=== PATIENT | male | born 1945 | race Caucasian/White ===

== ENCOUNTER → 2020-05-03 11:41 | Outpatient (CLI) | payer MEDICARE, OTHER, SELFPAY ==
[2020-05-03 13:47] LABS: Add Manual Diff / Slide Review SLIDE REVIEW; Basophils Absolute Auto 0 /uL (0-100); Basophils Percent Auto 0.8 % (0-2); Eosinophils Absolute Auto 0 /uL (0-450); Eosinophils Percent Auto 1.3 % (2-4); Hematocrit 39.4 % (41-53); Hemoglobin 13.5 g/dL (13.5-17.5); Lymphocytes Absolute Auto 800 /uL (1100-4500); Lymphocytes Percent Auto 37.1 % (25-40); Mean Corpuscular HGB Conc 34.4 % (30-36); Mean Corpuscular Hemoglobin 29.1 PG (26-34); Mean Corpuscular Volume 84.6 fL (80-100); Monocytes Absolute Auto 400 /uL (0-900); Monocytes Percent Auto 20.4 % (3-14); Neutrophils Absolute Auto 900 /uL (1500-7000); Neutrophils Percent Auto 40.4 % (50-75); Platelet Count 121 X10^3/uL (150-400); Red Blood Cell Count 4.66 X10^6/uL (4.5-5.9); Red Cell Distribution Width 17.6 % (11.6-14.8); White Blood Cell Count 2.1 X10^3/uL (4.5-11.0)
[2020-05-03 14:22] LABS: Alanine Aminotransferase 15 IU/L (<50); Albumin 4.4 g/dL (3.5-5.0); Albumin Globulin Ratio 1.8 (1.0-2.8); Alkaline Phosphatase 64 U/L (38-126); Aspartate Aminotransferase 39 IU/L (17-59); BUN Creatinine Ratio 23.5 (6-22); Bilirubin Total 0.9 mg/dL (0.2-1.3); Bilirubin Unconjugated 0.9 mg/dL (0.0-1.1); Blood Urea Nitrogen 20 mg/dL (9-20); Calcium 9.6 mg/dL (8.4-10.2); Carbon Dioxide 31 mmol/L (22-32); Chloride 101 mmol/L (98-107); Estimated Glomerular Filt Rate > 60.0 mL/min (>60); Globulin 2.4 g/dL (1.7-4.1); Glucose 85 mg/dL (80-110); HEMOLYSIS < 15 (0-50); Lactate Dehydrogenase 496 U/L (313-618); Magnesium 2.2 mg/dL (1.6-2.3); Phosphorous 3.1 mg/dL (2.3-3.7); Potassium 4.6 mmol/L (3.4-5.1); Sodium 137 mmol/L (137-145); Total Protein 6.8 g/dL (6.3-8.2)
[2020-05-03 15:29] LABS: Anisocytosis 1+; Platelet Estimate Decreased on smear; Poikilocytosis 1+
== END ==
PROVIDERS: Referring Provider Internal Medicine Hematology & Oncology; Visit Provider Internal Medicine Hematology & Oncology
DX: D46.9 Myelodysplastic syndrome, unspecified (principal); I10 Essential (primary) hypertension
CPT/HCPCS: 36415; 80069; 80076; 83615; 83735; 85025

== ENCOUNTER → 2020-09-20 19:08 | Outpatient (ROUT) | payer MEDICARE, OTHER, SELFPAY ==
[2020-09-20 19:46] LABS: Aspartate Aminotransferase 40 IU/L (17-59); BUN Creatinine Ratio 26.4 (6-22); Blood Urea Nitrogen 23 mg/dL (9-20); Calcium 9.6 mg/dL (8.4-10.2); Carbon Dioxide 33 mmol/L (22-32); Chloride 103 mmol/L (98-107); Cholesterol 131 mg/dL (140-199); Estimated Glomerular Filt Rate > 60.0 mL/min (>60); Glucose 101 mg/dL (80-110); HDL Cholesterol 46 mg/dL (40-60); HEMOLYSIS 21 (0-50); LDL Cholesterol Calculated 58 mg/dL (<100); Sodium 139 mmol/L (137-145); Triglycerides 135 mg/dL (35-150)
[2020-09-20 20:12] LABS: Add Manual Diff / Slide Review SLIDE REVIEW; Basophils Absolute Auto 0 /uL (0-100); Basophils Percent Auto 0.7 % (0-2); Eosinophils Absolute Auto 0 /uL (0-450); Eosinophils Percent Auto 1.6 % (2-4); Hematocrit 40.6 % (41-53); Hemoglobin 13.8 g/dL (13.5-17.5); Lymphocytes Absolute Auto 1000 /uL (1100-4500); Lymphocytes Percent Auto 33.2 % (25-40); Mean Corpuscular HGB Conc 34.1 % (30-36); Mean Corpuscular Hemoglobin 28.7 PG (26-34); Mean Corpuscular Volume 84.1 fL (80-100); Monocytes Absolute Auto 400 /uL (0-900); Monocytes Percent Auto 13.3 % (3-14); Neutrophils Absolute Auto 1600 /uL (1500-7000); Neutrophils Percent Auto 51.2 % (50-75); Platelet Count 131 X10^3/uL (150-400); Red Blood Cell Count 4.83 X10^6/uL (4.5-5.9); Red Cell Distribution Width 17.2 % (11.6-14.8); White Blood Cell Count 3.1 X10^3/uL (4.5-11.0)
[2020-09-20 20:13] LABS: Hypochromasia 1+; Microcytosis 1+
== END ==
PROVIDERS: Visit Provider Internal Medicine
DX: I10 Essential (primary) hypertension (principal); E78.2 Mixed hyperlipidemia; D61.818 Other pancytopenia
CPT/HCPCS: 80048; 80061; 84450; 85025

== ENCOUNTER → 2021-04-25 10:47 | Outpatient (CLI) | payer MEDICARE, OTHER, SELFPAY ==
--- NOTE | 2021-04-25 | DI.RAD.S_ITS ---
PROCEDURE: XR LUMBAR SPINE 2-3V INDICATIONS: LEFT-SIDED SCIATICA TECHNIQUE: 3 views of the lumbar spine were acquired. COMPARISON: [facility], , RENAL OR RETROPERITONEAL LIMIT, 08/05/2015, 10:25. FINDINGS: Bones: There are multilevel degenerative changes with multilevel osteophytes anteriorly. There is disc space narrowing and endplate degenerative changes at all lumbar disc levels except L5-S1. There is severe facet arthrosis in the lower lumbar spine. There is rightward curvature of the lumbar spine. The sacroiliac joints are normal. No compression fracture. Soft tissues: Overlying bowel gas pattern is normal. No suspicious soft tissue calcifications. The aorta has atherosclerotic calcifications with aneurysmal dilatation up to 4 centimeters. IMPRESSION: 1. Multilevel degenerative changes of the lumbar spine. 2. 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 3. Rightward curvature of the lumbar spine. 4. 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 5. Atherosclerotic calcifications of the abdominal aorta with aneurysmal dilatation measuring up to 0.4 centimeters. Recommend follow-up ultrasound to compare with prior abdominal ultrasounds. Dictated by: Manuel Skinner M.D. on 04/25/2021 at 13:46 Approved by: Manuel Skinner M.D. on 04/25/2021 at 13:51
[2021-04-25 11:55] LABS: Add Manual Diff / Slide Review NO; Basophils Absolute Auto 0 /uL (0-100); Basophils Percent Auto 0.8 % (0-2); Eosinophils Absolute Auto 100 /uL (0-450); Eosinophils Percent Auto 1.9 % (2-4); Hematocrit 39.3 % (41-53); Hemoglobin 13.3 g/dL (13.5-17.5); Lymphocytes Absolute Auto 1200 /uL (1100-4500); Lymphocytes Percent Auto 36.1 % (25-40); Mean Corpuscular HGB Conc 33.8 % (30-36); Mean Corpuscular Hemoglobin 28.7 PG (26-34); Mean Corpuscular Volume 84.9 fL (80-100); Monocytes Absolute Auto 700 /uL (0-900); Monocytes Percent Auto 21.5 % (3-14); Neutrophils Absolute Auto 1300 /uL (1500-7000); Neutrophils Percent Auto 39.7 % (50-75); Platelet Count 126 X10^3/uL (150-400); Red Blood Cell Count 4.63 X10^6/uL (4.5-5.9); Red Cell Distribution Width 18.2 % (11.6-14.8); White Blood Cell Count 3.3 X10^3/uL (4.5-11.0)
== END ==
PROVIDERS: Physician Assistant; PCP Internal Medicine; Referring Provider Internal Medicine; Visit Provider Internal Medicine
DX: M51.16 Intervertebral disc disorders with radiculopathy, lumbar region (principal); M47.26 Other spondylosis with radiculopathy, lumbar region; I70.0 Atherosclerosis of aorta; I71.4 Abdominal aortic aneurysm, without rupture; I10 Essential (primary) hypertension
CPT/HCPCS: 36415; 72100; 85025

== ENCOUNTER → 2023-06-12 19:02 | Outpatient (CLI) | payer MEDICARE, OTHER, SELFPAY ==
[2023-06-12 19:21] LABS: BUN Creatinine Ratio 20.4 (6-22); Blood Urea Nitrogen 20 mg/dL (9-20); Calcium 9.3 mg/dL (8.4-10.2); Carbon Dioxide 29 mmol/L (22-32); Chloride 101 mmol/L (98-107); Estimated Glomerular Filt Rate > 60 mL/min (>60); Glucose 93 mg/dL (80-110); HEMOLYSIS 19 (0-50); Potassium 4.1 mmol/L (3.4-5.1); Sodium 136 mmol/L (137-145)
== END ==
PROVIDERS: PCP Family Medicine; Visit Provider Nurse Practitioner Family
DX: U07.1 COVID-19 (principal)
CPT/HCPCS: 80048